=== PATIENT | female | born 1965 ===

== ENCOUNTER 2024-09-06 20:38 | Emergency (ER) | payer BC ==
[2024-09-06] MEDS: Cyclobenzaprine 10 MG Tab PO ONE (22:34)
[2024-09-06] MEDS: Ketorolac 30 MG/ML SDV IM ONE (22:34)
== END 2024-09-06 23:10 | disposition home or self-care (01) ==
LOC: FB.ED 20:38
DX: S09.90XA Unspecified injury of head, initial encounter (principal); S39.012A Strain of muscle, fascia and tendon of lower back, initial encounter; Z88.5 Allergy status to narcotic agent; Z79.899 Other long term (current) drug therapy; W10.9XXA Fall (on) (from) unspecified stairs and steps, initial encounter
CPT/HCPCS: 70450; 72100; 96372; 99283; 99284; A9270; J1885